=== PATIENT | female | born 1950 | race Caucasian/White ===

== ENCOUNTER 2024-02-25 14:19 | Inpatient (IN) | payer BC, MEDICARE, SELFPAY ==
[2024-02-24 14:18] VITALS: BP 153/82
[2024-02-24 14:43] LABS: Urine Albumin Negative (Neg - Trace); Urine Bilirubin Negative (Negative); Urine Character Clear (Clear); Urine Color Yellow; Urine Glucose Negative (Negative); Urine Ketone Negative (Negative); Urine Leukocyte 2+ (Negative); Urine Nitrite Negative (Negative); Urine Occult Blood Negative (Negative); Urine Urobilinogen Negative (Neg - 1+); Urine pH 6.5 (5.0-9.0)
[2024-02-24 14:52] LABS: % Basophils 0.7 % (0-2); % Immature Granulocytes 0.7 % (0-0.5); % Monocytes 4.2 % (1.7-9.3); % Neutrophils 66.4 % (42.2-75.2); Absolute Basophils 0.1 10^3/uL (0-0.2); Absolute Eosinophils 0.1 10^3/uL (0-0.7); Absolute Immature Granulocytes 0.1 10^3/uL (0-0.05); Absolute Lymphocytes 2.5 10^3/uL (1.2-3.4); Absolute Monocytes 0.4 10^3/uL (0.1-0.6); Absolute Neutrophils 6.1 10^3/uL (1.4-6.5); Hematocrit 43.2 % (37.0-47.0); Hemoglobin 14.1 g/dL (12.0-16.0); Mean Corp Hgb Conc. 32.6 g/dL (33.0-37.0); Mean Corpuscular Hgb 31.3 pg (27.0-31.0); Nucleated Red Blood Cells % 0 %; Platelet Count 294 10^3/uL (130-400); Red Cell Dist. Width 13.1 % (11.5-14.5); White Blood Cell Count 9.2 10^3/uL (4.8-10.8)
[2024-02-24 14:54] VITALS: BMI 31.4
[2024-02-24 14:59] LABS: ALT (SGPT) 18 U/L (0-35); AST (SGOT) 26 U/L (14-36); Albumin 4.6 g/dl (3.5-5.0); Alkaline Phosphatase 83 U/L (38-126); Blood Urea Nitrogen 19 mg/dl (7-17); Calcium 9.8 mg/dl (8.4-10.2); Carbon Dioxide 24 mmol/L (22-30); Chloride 106 mmol/L (98-107); Estimated Creatinine Clearance 75 ml/min; Glucose 142 mg/dl (70-99); Potassium 4.2 mmol/L (3.5-5.1); Sodium 139 mmol/L (135-145); Total Bilirubin 0.5 mg/dl (0.2-1.3); Total Protein 7.3 g/dl (6.3-8.2); eGFR > 60.00
[2024-02-24 15:05] VITALS: BP 138/74
[2024-02-24 15:22] LABS: Urine Bacteria Many (Negative); Urine Red Blood Cell 0-2 /HPF (0-2)
--- NOTE | 2024-02-24 15:53 | ED.GENMED ---
History of Present Illness
General
Chief Complaint: Change in Mental Status
Source: patient and family
Exam Limitations: none
Time Seen by Provider: 02/24/24 14:59
Nursing documentation reviewed up to this point in time: agreed with
History of Present Illness
History of Present Illness:
73-year-old female presents emergency department due to difficulty walking, confusion when she was driving to breakfast, difficulty pouring cereal.
Past History
Past History
ED Past Medical History: None
ED Past Surgical History: Appendectomy, Cholecystectomy and Gynecological (Hysterectomy)
Social History
Tobacco: Non-smoker
Alcohol: None
Drug: None
Review of Systems
Review of Systems
Allergies reviewed?: Yes
All Other Systems: Not applicable
Constitutional: Reports no symptoms
EENT: Reports no symptoms
Respiratory: Reports no symptoms
Cardiac: Reports no symptoms
ABD/GI: Reports no symptoms
: Reports no symptoms
Musculoskeletal: Reports no symptoms
Skin: Reports no symptoms
Neurological: Reports other (Confusion, difficulty walking)
Endocrine: Reports no symptoms
Hematologic/Lymphatic: Reports no symptoms
Psychiatric: Reports no symptoms
Phy Exam
Physical Exam
Physical Exam:
Physical Exam
General: no apparent distress, not acutely ill
Neck: supple. no meningeal signs. normal posterior pharynx
Heart: s1/s2 regular rate and rhythm, no murmur. equal radial
pulses.
HEENT: Pupils equal round reactive to light, EOMI
Lungs: no acute respiratory distress. clear bilaterally
Abdomen: normal bowel sounds. not tender. no CVAT
Neuro: alert and oriented. no focal neurological deficits cranial nerves II through XII intact
Skin: no rash
Psychiatric: well kept. interactive and cooperative
Extremities: no edema. no calf tenderness. negative homans. good distal pulses
NIH Stroke Score
Level of Consciousness: 0 - Alert
LOC questions: 0-Answers both correctly
LOC Commands: 0-Performs both correctly
Best Gaze: 0-Normal
Visual [place]: 0=Normal, no visual loss
Facial palsy: 0=Normal, symmetrical
Motor - Right Arm: 0=No drift 10 seconds
Motor - Left Arm: 0=No drift 10 seconds
Motor - Right Le-No drift 5 seconds
Motor - Left Le-No drift 5 seconds
Limb Ataxia: 0-Absent
Sensation: 0-Normal
Best Language: 0-No aphasia
Dysarthria: 0-Normal
Extinction and Inattention: 0-No abnormality
Total Score:: 0
Alteplase Contraindication
Reasons for NON-Treatment with Thrombolytics: Time
King Coma Scale
Eye Opening: Spontaneous
Verbal Response: Oriented
Motor Response: Obeys Commands
GCS Total Score: 15
Course
Orders/Labs/Results
Orders:
Orders
02/24/24 14:22
CT Head W/o Iv Contrast Urgent
Comment:
Reason For Exam: change in mental status
02/24/24 14:31
Complete Blood Count/With Diff Urgent
Comprehensive Metabolic Panel Urgent
Urinalysis Reflex To Culture Urgent
Date Specimen was Collected: 02/24/24
Time Specimen was Collected: 14:22
Urine Microscopic Reflex Cult Urgent
Urine Culture Urgent
GIOVANA Source: U
Specimen Description:
Date Specimen was Collected: 02/24/24
Time Specimen was Collected: 14:22
Abnormal Lab Results
02/24/24
14:31
MCH 31.3 H pg
(27.0-31.0)
MCHC 32.6 L g/dL
(33.0-37.0)
Abs Immat Gran (auto) 0.1 H 10^3/uL
(0-0.05)
Immature Gran % 0.7 H %
(0-0.5)
BUN 19 H mg/dl
(7-17)
Glucose 142 H mg/dl
(70-99)
Leukocyte Esterase Rfl 2+ A
(Negative)
Urine WBC (Reflex) 11-15 A /HPF
(0-5)
Urine Bacteria (Reflex) Many A
(Negative)
02/24/24 14:31
02/24/24 14:31
Vital Signs
Initial and Last Documented VS:
Initial Vital Signs
Temp Pulse Resp BP Pulse Ox
98.0 F 87 16 153/82 98
02/24/24 14:18 02/24/24 14:18 02/24/24 14:18 02/24/24 14:18 02/24/24 14:18
Last Documented Vital Signs
Temp Pulse Resp BP Pulse Ox
98.0 F 84 13 138/74 95
02/24/24 14:18 02/24/24 15:15 02/24/24 15:15 02/24/24 15:05 02/24/24 15:15
MDM/Problems Addressed
Differential Diagnosis Includes:
CVA, intracranial hemorrhage
MDM/Problems Addressed:
73-year-old female with CVA. No indication for tPA or IAT. Unclear onset of symptoms.
*Radiology
Radiology exam reviewed: radiology read reviewed (CT head shows acute/subacute nonhemorrhagic infarct in right basal ganglia)
*Pulse Oximetry
Patient hypoxic: no
*Research Subject Interpretation
Rate: normal
Interpretation: normal
Heart Rate: 78
Rhythm: sinus
*Critical Care Note
Total Time (30-74mins, 75-104mins- exclusive of procedures): Not Applicable
Data Reviewed
Prescriptions/Medications Considered But Not Given:
TNK not indicated
ED Attending Note
-
Portions of this chart may have been created with voice recognition software.� Occasional wrong word or��sound alike� substitutions may have occurred due to the inherent limitations of voice recognition software.
Discharge Plan
Departure
Patient Disposition: Admit
Date of Disposition: 02/24/24
Time of Disposition: 15:59
Presentation/result/management discussed w/ accepting MD/DO: Hospitalist
Patient with high blood pressure during this ER visit?: Yes
Condition: Good
Discharge Problem:
Acute CVA (cerebrovascular accident)
Prescriptions:
No Action
albuterol sulfate 1 PUFF HFA aerosol inhaler
2 puff inhalation R QID Qty: 1 0RF
benzonatate 100 MG capsule
100 mg PO TIDPRN PRN (Reason: cough) Qty: 20 0RF
Referrals:
Roselyn Barragan DO [Family Provider] -
Interventions
Interventions:
*Risk Screen - Suicide Last Done: 02/24/24 14:54
*General Assessment Last Done: 02/24/24 14:54
*Neglect/Abuse Screening Last Done: 02/24/24 14:54
ED- Fall Risk Assessment Last Done: 02/24/24 15:28
*ED COVID-19 Vaccine History Last Done: 02/24/24 14:18
ED- Neurological Assessment Last Done: 02/24/24 15:05
Discharge Date and Time
Print Language: L[place]
[2024-02-24 16:00] VITALS: BP 138/75
[2024-02-24] MEDS: LOW STRENGTH ASPIRIN 324 MG PO (16:11)
[2024-02-24] MEDS: PLAVIX 300 MG PO (16:11)
--- NOTE | 2024-02-24 18:15 | HPS.HSE ---
Family Physician
-
Family Physician: Roselyn Barragan DO
Chief Complaint
-
Son was concerned she was acting differently and had ataxia
History of Present Illness
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
pancakes), and had 'shuffling gait' at approximately 10 am. He called his sister (who is also a nurse), around 1 pm describing unusual behaviors. They also thought their mom may have had a right-sided facial droop. All symptoms have resolved at this
time, and the patient denies any of these symptoms and does not recall having unusual symptoms. She takes only a daily aspirin 81 mg. She has been traveling (2 months ago) to [place], and otherwise denies other ROS and feels well at this time.
ED txt: Neuro Cx from ED for acute stroke right basal ganglia.
aspirin 324 mg
Plavix 300 mg
Medical History
Past Medical History
Past Medical History: Reports None
Past Surgical History: Reports Appendectomy, Cholecystectomy and Gynocological (MICHAEL)
Social History
Tobacco: Non-smoker
Alcohol: None
Drug: None
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
Family History
Family History: Not pertinent
Allergies / Home Medications
Allergies reflects when Allergies were last updated in [facility].
Home Medications with original date entered in [facility]
Allergy/Medication List:
Allergies
Allergy/AdvReac Type Severity Reaction Status Date / Time
No Known Allergies Allergy Verified 02/24/24 14:21
Home Medications
aspirin 81 mg tablet,delayed release 81 mg PO DAILY 02/24/24
calcium carbonate 500 mg-vitamin D3 10 mcg (400 unit) tablet (Calcium 500 + D) 1 tab PO DAILY 02/24/24
ibuprofen 200 mg tablet (Advil) 400 mg PO Q6HPRN PRN mild pain 02/24/24
Review of Systems
-
A 12 point ROS was completed and negative except as noted: Yes
Physical Exam
Vital Signs
Vital Signs
Temp Pulse Resp BP Pulse Ox
98.0 F 85 19 138/75 95
02/24/24 14:18 02/24/24 17:45 02/24/24 17:45 02/24/24 16:00 02/24/24 17:45
Physical Exam
General: Well Developed, Well Nourished, No Apparent Distress, Comfortable and Conversant
HEENT: NormoCephalic, Anicteric and Moist mucous membranes
Respiratory: Clear
Cardiac: S1/S2 and Regular Rhythm
GI: Soft and Non Tender
Musculoskeletal: No Clubbing, No Cyanosis and No Edema
Skin: Warm and Dry
Neuro: AO x 3, No Motor Deficits, Nonfocal/grossly intact, Cranial Nerves Intact and No Sensory Deficits
Laboratory Results
-
02/24/24 14:31
02/24/24 14:31
Laboratory Results
Total Bilirubin 0.5 mg/dl (0.2-1.3) 02/24/24 14:31
AST 26 U/L (14-36) 02/24/24 14:31
ALT 18 U/L (0-35) 02/24/24 14:31
Alkaline Phosphatase 83 U/L (38-126) 02/24/24 14:31
Data Reviewed
-
CT Scan: Report Reviewed by me (CTA head and neck Evolving acute/subacute nonhemorrhagic infarct in the right basal ganglia.)
Impression/Plan
-
IMPRESSION:
# Right basal ganglia likely representing an acute/subacute nonhemorrhagic infarct,
-Neuro Consultation from ED
- CTA head and neck Evolving acute/subacute nonhemorrhagic infarct in the right basal ganglia.
-not tPA candidate nor IAT
-resolved focal neurological symptoms at this time
-admit to telemetry for monitoring for arrhythmia overnight
-NIH scale and neuro-checks, scheduled
-MRI brain, MRA head and neck
-echocardiogram
-PT eval
-aspirin and Plavix at this time s/p loading dose in ED, followed by aspirin 81 mg daily and Plavix 75 mg daily, awaiting formal Neuro Consult for duration of DAPT
-permissive hypertension- goal less than 220/120 until tomorrow 8 am
DVT proph-PCSs
Full Code
[2024-02-24 19:30] VITALS: BP 132/62
[2024-02-24 20:47] VITALS: BMI 31.1
[2024-02-24 20:48] VITALS: BP 132/72
--- NOTE | 2024-02-24 20:55 | PTCARENOTE ---
Pt was received from ED at 0. Pt ambulated to the room. NIH 1 on arrival. Minor left facial droop noted. Pt oriented to the room and the care plan. Family at the bedside.
[2024-02-24 23:20] VITALS: BP 124/59
[2024-02-25 03:15] VITALS: BP 135/69
[2024-02-25 06:00] VITALS: BMI 31.1
[2024-02-25 07:46] VITALS: BP 166/66
[2024-02-25 07:47] LABS: Hematocrit 41.2 % (37.0-47.0); Hemoglobin 13.4 g/dL (12.0-16.0); Mean Corp Hgb Conc. 32.5 g/dL (33.0-37.0); Mean Corpuscular Hgb 30.9 pg (27.0-31.0); Mean Corpuscular Volume 94.9 fL (81.0-99.0); Mean Platelet Volume 9.1 fL (7.4-10.4); Platelet Count 270 10^3/uL (130-400); Red Blood Cell Count 4.34 10^6/uL (4.20-5.40); Red Cell Dist. Width 13.2 % (11.5-14.5); White Blood Cell Count 9.5 10^3/uL (4.8-10.8)
[2024-02-25] MEDS: OSCAL 500 + D 500 MG PO (08:31)
[2024-02-25] MEDS: ASPIR LOW (ENTERIC COATED) 81 MG PO (08:31)
[2024-02-25] MEDS: PLAVIX 75 MG PO (08:32)
[2024-02-25 08:34] LABS: ALT (SGPT) 16 U/L (0-35); AST (SGOT) 22 U/L (14-36); Albumin 4.1 g/dl (3.5-5.0); Alkaline Phosphatase 80 U/L (38-126); Blood Urea Nitrogen 19 mg/dl (7-17); Calcium 9.4 mg/dl (8.4-10.2); Carbon Dioxide 25 mmol/L (22-30); Chloride 106 mmol/L (98-107); Estimated Creatinine Clearance 65 ml/min; Glucose 92 mg/dl (70-99); HDL Cholesterol 56 mg/dl; LDL Cholesterol, Calculated 171 mg/dl; Potassium 4.3 mmol/L (3.5-5.1); Sodium 140 mmol/L (135-145); Total Bilirubin 0.5 mg/dl (0.2-1.3); Total Cholesterol 248 mg/dl (50-199); Total Protein 6.6 g/dl (6.3-8.2); Triglyceride 108 mg/dl (10-149); Very Low Density Lipoprotein 21 mg/dl (0-30); eGFR > 60.00
[2024-02-25 10:11] VITALS: BP 100/57; PULSE 93; O2SAT 98
[2024-02-25 10:33] VITALS: BP 100/57; PULSE 82; O2SAT 97
[2024-02-25 11:34] VITALS: BP 162/93
--- NOTE | 2024-02-25 11:40 | CON.NEURO4 ---
Consultation - Neurology 4
-
CONSULTING PHYSICIAN: Kerwin Valdivia MD(Neurology)
REFERRING PHYSICIAN: Tej Ambriz
DICTATED BY: Kerwin Valdivia MD
DATE/TIME OF REQUEST:
DATE/TIME OF CONSULTATION: 02/25/2024 1115A
Reason for Consultation: AMS
History of Present Illness:
This is a 73 year old right handed female who has presented to the hospital with AMS. She has no previous medical issues, and had been in her [place] till yesterday AM. She was to meet her family at [place] and drove past initially and was able to
return. She recognized her family but was emotionally subdued. Her son noted her to be 'acting strangely (she emptied a whole bottle of syrup on her pancakes), and had 'shuffling gait' at approximately 10 am. He called his sister (who is also a
nurse), around 1 pm describing unusual behaviors. They also thought their mom may have had a left-sided facial droop. She was then taken to the ER
And symptoms have resolved at this time, and the patient denies any of these symptoms and does not recall having unusual symptoms. She takes only a daily aspirin 81 mg. She had traveled abroad to [place], and otherwise denies other ROS and feels well
at this time.
Following admission she has been doing well. No facial or limb weakness. NIHSS= 0
CT and MRI head revealed an acute right basal ganglia infarction.
Past Medical History: None
Surgical History: Appendectomy
Family History: None
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
Allergies: None
Home Medications: Ecasa 81
Review of Symptoms:
Patient denies any fever, headache, chest pain, shortness of breath, GI or symptoms.
�Per the HPI.�All systems are reviewed negative except above.
�- Remove any of these problems that patient may have complained about in the HPI.
�- If patient is unresponsive, intubated or demented, say 'Per the HPI. I am unable to obtain a complete review of systems�because of patient's inability to provide history.'
Vital Signs:
Physical Exam:
The patient is afebrile, heart sounds S1 and S2 are (regular / irregular), and chest is clear to auscultation bilaterally.
- If not clear, describe.
NIH Stroke Scale (if applicable):
I performed the NIH stroke scale on the patient on (date & time). The patient scored ( ) points on the NIH stroke scale assessment, which were assigned as follows:
Neurologic Examination:
The patient is awake, alert and oriented x 3. (He/She) is able to follow commands and answer questions appropriately. There is no aphasia or dysarthria. On cranial nerve assessment, pupils are 3 mm bilateral, round and reactive to light and
accommodation. Visual valerio are full. Extraocular movements are intact. Facial sensations are intact and bilaterally symmetrical, there is no facial asymmetry. Hearing is intact bilaterally to normal conversation volume. Tongue palate and uvula
are midline. Sternocleidomastoid strengths are full bilaterally. Motor strengths are 5/5 bilateral upper and lower extremities on medical research [place] scale. There is no drift or involuntary movement noted. Deep tendon reflexes are 2+ bilateral
upper and lower extremities and Babinski is absent bilaterally. Sensations of pain, touch, temperature and vibration are intact and bilaterally symmetrical. There was no extinction noted on double simultaneous stimulation. Coordination is intact by
finger to nose bilaterally.
Lab Results:
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
Impression:
Ms. JOSE BARRETT is a 73 year old F who has presented to the hospital with new onset AMS had an acute Right basal ganglia infarction.
Recommendations:
1. Ecasa 81 mg
2. Plavix 75
3. Lipitor 80
4. Echocardiogram
5. PT/OT
6. Do not drive for 1-2 weeks
Discussed patient care with:
Total Time Spent with Patient (in minutes): 30 minutes
--- NOTE | 2024-02-25 11:48 | CM ---
Addendum entered by Ann Marie Barba 02/25/24 15:27:
Patient seen with family, agreeable to [facility] referral. Patient and family report patient will be home bound and not returning to work for the next month or month and a half. CM sent TT to [facility] liaison.
Original Note:
Patient seen bedside with multiple family members, initial assessment completed. 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 Patient denies DME, VN, or SNF. Patient confirms PCP Roselyn Barragan,
pharmacy used [facility]. CM discussed PT/OT recommendations of outpatient therapy, patient declines. CM reviewed [facility] form, signed, placed in chart. Patient inquiring about discharge. CM will continue to follow for all discharge planning needs.
Plan; home no needs, declining script for outpatient therapy.
--- NOTE | 2024-02-25 11:55 | CON.NEURO ---
Consultation
Order
Date of Consultation: 02/25/24
Requesting Provider:
Reason for Consult:
Subjective/Objective
Subjective Data
Date of Service: February 25, 2024
Objective Data
Vital Signs
Temp Pulse Resp BP Pulse Ox
36.6 C 85 21 162/93 95
02/25/24 11:34 02/25/24 11:34 02/25/24 11:34 02/25/24 11:34 02/25/24 11:34
Lab Results
02/25/24 07:10
02/25/24 07:10
Sodium 140 mmol/L (135-145) 02/25/24 07:10
Potassium 4.3 mmol/L (3.5-5.1) 02/25/24 07:10
BUN 19 mg/dl (7-17) H 02/25/24 07:10
Glucose 92 mg/dl (70-99) 02/25/24 07:10
Calcium 9.4 mg/dl (8.4-10.2) 02/25/24 07:10
LDL Cholesterol, Calc 171 mg/dl 02/25/24 07:10
Patient Allergies
No Known Allergies Allergy (Verified 02/24/24 14:21)
Medications
-
Active Medications
Generic Name Dose Route Start Last Admin
Trade Name Freq PRN Reason Stop Dose Admin
Acetaminophen 650 mg 02/24/24 20:23
Acetaminophen 650 Mg Rectal Suppository RECTAL 03/23/24 20:22
Q4HPRN PRN
BEACH, mild pain, or temp >100.4F
Acetaminophen 650 mg 02/24/24 20:23
Acetaminophen 325 Mg Tablet PO 03/23/24 20:22
Q4HPRN PRN
BEACH, mild pain, or temp >100.4F
Aspirin 81 mg 02/25/24 08:00 02/25/24 08:31
Aspirin 81 Mg (Enteric Coated) Tablet PO 03/24/24 07:59 81 mg
DAILY LARISA Administration
Atorvastatin Calcium 80 mg 02/25/24 18:00
Atorvastatin (Lipitor) 80 Mg Tablet PO 03/24/24 17:59
QPM LARISA
Calcium/Vitamin D 500 mg 02/25/24 08:00 02/25/24 08:31
Calcium Carbonate 500 Mg/Vitamin D 5 Mcg (200 Units) Tablet PO 03/24/24 07:59 500 mg
DAILY LARISA Administration
Clopidogrel Bisulfate 75 mg 02/25/24 08:00 02/25/24 08:32
Clopidogrel 75 Mg Tablet PO 03/24/24 07:59 75 mg
DAILY LARISA Administration
Sodium Chloride 0 flush 02/24/24 21:00
Sodium Chloride 0.9% (Flush) Syringe IV 03/23/24 20:59
PER PROTOCOL LARISA
Home Medications
�Medication �Instructions �Recorded
aspirin 81 mg tablet,delayed 81 mg PO DAILY 02/24/24
release
calcium carbonate 500 mg-vitamin 1 tab PO DAILY 02/24/24
D3 10 mcg (400 unit) tablet
(Calcium 500 + D)
ibuprofen 200 mg tablet (Advil) 400 mg PO Q6HPRN PRN mild pain 02/24/24
--- NOTE | 2024-02-25 13:59 | W.PN.HOSP.TC ---
Today's Communication/Plan
-
Will need close follow up post dc
Assessment / Plan
Assessment / Plan
# Right basal ganglia likely representing an acute/subacute nonhemorrhagic infarct,
-Neuro Consultation from ED. Was noted to be disoriented, as per family is now 90% back to nl
- CTA head and neck Evolving acute/subacute nonhemorrhagic infarct in the right basal ganglia.
-not tPA candidate nor IAT
-resolved focal neurological symptoms at this time
-admit to telemetry for monitoring for arrhythmia overnight
-NIH scale and neuro-checks, scheduled
-MRI brain, MRA head and neck: 1. 2.6 cm ACUTE ISCHEMIC INFARCT in the RIGHT CAUDATE NUCLEUS and BASAL GANGLIA.
2. Mild white matter leukoaraiosis in the frontal and parietal lobes.
3. Moderate bilateral frontal lobe volume loss.
4. Mild paranasal sinus mucosal disease.
MRA: 1. No MRA evidence for large vessel intracranial arterial stenosis or occlusion.
2. Mild atherosclerotic plaque in both internal carotid arteries.
MRA neck: 1. Mild atherosclerotic plaque in both proximal internal carotid arteries.
2. No MRA evidence for internal carotid artery stenosis or occlusion.
3. 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
4. Severe tortuosity of the proximal left vertebral artery.
Echo: Technically fair study
Normal left ventricular size, wall thickness and systolic function. No regional
wall motion abnormalities are seen. LV ejection fraction is 55-60%.
No significant valve disease
No cardiac source of embolus identified, consider GUSTAVO if clinically indicated.
No prior echo for comparison
-echocardiogram:Technically fair study
Normal left ventricular size, wall thickness and systolic function. No regional
wall motion abnormalities are seen. LV ejection fraction is 55-60%.
No significant valve disease
No cardiac source of embolus identified, consider GUSTAVO if clinically indicated.
No prior echo for comparison
-PT eval
-aspirin and Plavix at this time s/p loading dose in ED, followed by aspirin 81 mg daily and Plavix 75 mg daily, discussed with Neuro, will continue for 4 weeks
-BP now 136/83, BP borderline, will start Toprol XL 25 mg daily
DVT proph-PCSs
Full Code
will dc now
see dictated note
More than 30 minutes spent in discharge including
Final examination of the patient
Summarizing hospital stay
Instructions for continuing care to all relevant caregivers
Preparation of discharge records, prescriptions, and referral forms
Total time spent (in minutes): 45
Anticipated Discharge: Today
Subjective/Interval History
-
Date of Service: February 25, 2024
Feels well, anxious to go home
Objective Data
-
Labs:
Laboratory Results
02/25/24
07:10
WBC 9.5
Hgb 13.4
Hct 41.2
Plt Count 270
Sodium 140
Potassium 4.3
Chloride 106
Carbon Dioxide 25
BUN 19 H
Creatinine 0.8
Glucose 92
Calcium 9.4
Total Bilirubin 0.5
AST 22
ALT 16
Alkaline Phosphatase 80
Vital Signs:
Vital Signs
Temp Pulse Resp BP Pulse Ox
98 F 85 21 162/93 95
02/25/24 11:34 02/25/24 11:34 02/25/24 11:34 02/25/24 11:34 02/25/24 11:34
Review of Systems
-
History Source: Patient, Family (son Jake, gnd dgt Arlene, dgt Judy) and Physician (reviewed with neurology)
Constitutional: Reports No Symptoms; Denies Fever
EENT: Reports No Symptoms Reported
Respiratory: Reports No Symptoms; Denies Cough
Cardiac: Reports No Symptoms
Abdomen/GI: Reports No Symptoms
Genitourinary: Reports No Symptoms
Musculoskeletal: Reports No Symptoms
Neuro: Reports Other (mentation ~98% back to baseline)
Physical Exam
-
General: Well Developed, Well Nourished and No Apparent Distress
HEENT: Normocephalic, Atraumatic and Moist Mucous Membranes
Respiratory: Clear to Auscultation; Negative Wheezes, Rales or Rhonchi
Cardiac: Regular Rhythm and S1/S2
GI: Soft, Nontender and Nondistended
Musculoskeletal: No Clubbing, No Cyanosis and No Edema
Neuro: Awake, Alert and Oriented
--- NOTE | 2024-02-25 16:32 | VNURNOTE ---
Home Health Liaison spoke with patient at 1630 to discuss [facility] therapy, visits, schedule and homebound status. Patient is agreeable and understands that visits at home will be 2-3 x per week to assess and teach balance and strengthening exercises.
Patient is aware that [facility] will contact them for start of care in 1-2 days after discharge from .
[facility] referral completed in [facility].
--- NOTE | 2024-02-26 07:09 | W.DS.TRANS ---
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
-
Discharge Instructions:
Discharge Diagnosis/Procedures Cerebrovascular Accident
Diet Regular
Activity No strenuous activity
Additional Activity No work until cleared by neurologists
Driving Restrictions Not until seen by your Dr
Bathing Restrictions None
Blood Work CBC, BMP in 2 weeks, Lipid Profile in 5-6 weeks
Other Services VN,PT
Instructions:
Stand-Alone Forms:
Changes to Home Medications: Yes
Discharge Medications:
DC Medications w/original date entered in [employer]
aspirin 81 mg tablet,delayed release 81 mg PO DAILY 02/24/24
calcium carbonate 500 mg-vitamin D3 10 mcg (400 unit) tablet (Calcium 500 + D) 1 tab PO DAILY 02/24/24
atorvastatin 80 mg tablet 80 mg PO QPM #90 tabs 02/25/24
clopidogrel 75 mg tablet 75 mg PO DAILY #28 tabs 02/25/24
metoprolol succinate 25 mg tablet,extended release 24 hr (Toprol XL) 25 mg PO DAILY #30 tabs 02/25/24
Home Medication Changes
Lipitor, Plavix and Toprol added to medications
Pending Results: No
== END 2024-02-25 15:24 | disposition home health service (06) | DRG 66 ==
LOC: 4 WEST ACU 14:19
PROVIDERS: Emergency Medicine; ADMITTING PHYSICIAN Internal Medicine; ATTENDING PHYSICIAN Internal Medicine; EMERGENCY PHYSICIAN Emergency Medicine; FAMILY PHYSICIAN Family Medicine; OTHER PHYSICIAN Psychiatry & Neurology Neurology
DX: I63.89 Other cerebral infarction (principal); R29.810 Facial weakness; R27.0 Ataxia, unspecified; R03.0 Elevated blood-pressure reading, without diagnosis of hypertension; E78.5 Hyperlipidemia, unspecified; Z79.82 Long term (current) use of aspirin
CPT/HCPCS: 70450; 70496; 70498; 70544; 70548; 70551; 80053; 80061; 81003; 81015; 85025; 85027; 87086; 93005; 93306; 97162; 97166; 99285; Q9967

== ENCOUNTER 2024-04-02 07:59 | Outpatient (RCR) | payer BC, MEDICARE, SELFPAY | END 2024-04-02 23:59 | disposition home or self-care (01) | LOC: ROT 07:59 | PROVIDERS: ATTENDING PHYSICIAN Emergency Medicine | DX: I69.314 Frontal lobe and executive function deficit following cerebral infarction (principal); I69.318 Other symptoms and signs involving cognitive functions following cerebral infarction | CPT/HCPCS: 96125; 97129; 97130; 97530 ==

== ENCOUNTER 2024-05-02 08:46 | Outpatient (RCR) | payer BC, MEDICARE, SELFPAY | END 2024-05-02 23:59 | disposition home or self-care (01) | LOC: ROT 08:46 | PROVIDERS: ATTENDING PHYSICIAN Emergency Medicine | DX: I69.398 Other sequelae of cerebral infarction (principal); Z73.6 Limitation of activities due to disability; I69.314 Frontal lobe and executive function deficit following cerebral infarction; I69.318 Other symptoms and signs involving cognitive functions following cerebral infarction | CPT/HCPCS: 97129; 97130; 97530; 97537 ==

== ENCOUNTER 2024-05-30 06:33 | Outpatient (RCR) | payer MEDICARE, SELFPAY | END 2024-05-30 23:59 | disposition home or self-care (01) | LOC: ROT 06:33 | PROVIDERS: ATTENDING PHYSICIAN Emergency Medicine | DX: I69.314 Frontal lobe and executive function deficit following cerebral infarction (principal); I69.318 Other symptoms and signs involving cognitive functions following cerebral infarction; Z73.6 Limitation of activities due to disability | CPT/HCPCS: 96125; 97129; 97130; 97167; 97530; 97535; 97537 ==

== ENCOUNTER 2024-07-02 06:36 | Outpatient (RCR) | payer SELFPAY | END 2024-07-02 23:59 | disposition home or self-care (01) | LOC: ROT 06:36 | PROVIDERS: ATTENDING PHYSICIAN Emergency Medicine | DX: I69.314 Frontal lobe and executive function deficit following cerebral infarction (principal); I69.318 Other symptoms and signs involving cognitive functions following cerebral infarction; Z73.6 Limitation of activities due to disability | CPT/HCPCS: 97129; 97130; 97530; 97537 ==

== ENCOUNTER 2024-07-30 10:23 | Outpatient (RCR) | payer MEDICARE, SELFPAY | END 2024-07-30 23:59 | disposition home or self-care (01) | LOC: ROT 10:23 | PROVIDERS: ATTENDING PHYSICIAN Emergency Medicine | DX: I69.314 Frontal lobe and executive function deficit following cerebral infarction (principal); I69.318 Other symptoms and signs involving cognitive functions following cerebral infarction; Z73.6 Limitation of activities due to disability | CPT/HCPCS: 97129; 97130; 97530; 97537 ==

== ENCOUNTER 2024-08-06 12:51 | Outpatient (RCR) | payer MEDICARE, SELFPAY | END 2024-08-06 23:59 | disposition home or self-care (01) | LOC: ROT 12:51 | PROVIDERS: ATTENDING PHYSICIAN Emergency Medicine | DX: I69.314 Frontal lobe and executive function deficit following cerebral infarction (principal); I69.318 Other symptoms and signs involving cognitive functions following cerebral infarction; Z73.6 Limitation of activities due to disability | CPT/HCPCS: 97129; 97130; 97530 ==

== ENCOUNTER 2024-12-16 08:17 | Emergency (ER) | payer OTHER, SELFPAY ==
[2024-12-16 08:21] VITALS: BP 130/79
[2024-12-16] MEDS: TORADOL 15 MG IV (09:34)
[2024-12-16 09:46] LABS: Hematocrit 40.7 % (37.0-47.0); Hemoglobin 13.6 g/dL (12.0-16.0); Mean Corp Hgb Conc. 33.4 g/dL (33.0-37.0); Mean Corpuscular Hgb 31.7 pg (27.0-31.0); Mean Corpuscular Volume 94.9 fL (81.0-99.0); Mean Platelet Volume 9.2 fL (7.4-10.4); Platelet Count 262 10^3/uL (130-400); Red Blood Cell Count 4.29 10^6/uL (4.20-5.40); White Blood Cell Count 11.5 10^3/uL (4.8-10.8)
[2024-12-16 10:06] LABS: ALT (SGPT) 39 U/L (0-35); AST (SGOT) 39 U/L (14-36); Alkaline Phosphatase 104 U/L (38-126); Blood Urea Nitrogen 19 mg/dl (7-17); Calcium 9.8 mg/dl (8.4-10.2); Carbon Dioxide 23 mmol/L (22-30); Chloride 107 mmol/L (98-107); Glucose 143 mg/dl (70-99); Potassium 4.6 mmol/L (3.5-5.1); Sodium 141 mmol/L (135-145); Total Bilirubin 0.8 mg/dl (0.2-1.3); Total Protein 7.4 g/dl (6.3-8.2); eGFR > 60.00
[2024-12-16 10:39] LABS: Urine Albumin 3+ (Neg - Trace); Urine Bilirubin Negative (Negative); Urine Character Cloudy (Clear); Urine Color Brown; Urine Glucose Negative (Negative); Urine Ketone 1+ (Negative); Urine Leukocyte 2+ (Negative); Urine Nitrite Positive (Negative); Urine Occult Blood 4+ (Negative); Urine Urobilinogen Negative (Neg - 1+)
[2024-12-16 11:13] LABS: Urine Bacteria Few (Negative); Urine Red Blood Cell 90-100 /HPF (0-2); Urine Squamous Cell 0-2 /LPF (Few); Urine White Cell 0-2 /HPF (0-5)
--- NOTE | 2024-12-16 11:15 | ED.GENMED ---
History of Present Illness
General
Chief Complaint: Flank Pain
Time Seen by Provider: 12/16/24 08:56
History of Present Illness
History of Present Illness:
74-year-old female presents the emergency department for evaluation of left flank pain. She notes that she has been having intermittent hematuria for the past week or more. No fevers or chills. No prior history of kidney stone, states pain is
similar. Has not taken any medications this morning.
Past History
Past History
ED Past Medical History: None
ED Past Surgical History: Appendectomy, Cholecystectomy and Gynecological (Hysterectomy)
Social History
Tobacco: Non-smoker
Alcohol: None
Drug: None
Review of Systems
Review of Systems
Allergies reviewed?: Yes
All Other Systems: ROS reviewed and negative except as documented in HPI and ROS
Phy Exam
Physical Exam
Physical Exam:
GEN: Well appearing, NAD, WDWN
HEENT: Oral mucosa moist, no scleral icterus
Cardiac: Regular rate
Lung: No respiratory distress, no tachypnea
Abdomen: Soft, grossly nontender
MSK: No gross deformity or injuries
Skin: Good color, no pallor or jaundice, no rashes
Neuro: AO x3, moves all extremities freely
Psych: Calm, cooperative
Course
Orders/Labs/Results
Orders:
Orders
12/16/24 09:12
CT Abd/pel Without Iv Or Oral Urgent
Comment:
Reason For Exam: L flank pain/hematuria
Ketorolac [Toradol] 15 mg IV NOW STA
12/16/24 09:36
Complete Blood Count/No Diff Urgent
Comprehensive Metabolic Panel Urgent
12/16/24 10:30
Urinalysis Reflex To Culture Urgent
Date Specimen was Collected: 12/16/24
Time Specimen was Collected: 10:30
Urine Microscopic Reflex Cult Urgent
Urine Culture Urgent
GIOVANA Source: U
Specimen Description:
Date Specimen was Collected: 12/16/24
Time Specimen was Collected: 10:30
Abnormal Lab Results
12/16/24 12/16/24
09:36 10:30
WBC 11.5 H 10^3/uL
(4.8-10.8)
MCH 31.7 H pg
(27.0-31.0)
BUN 19 H mg/dl
(7-17)
Glucose 143 H mg/dl
(70-99)
AST 39 H U/L
(14-36)
ALT 39 H U/L
(0-35)
Urine Ketones 1+ A
(Negative)
Ur Occult Blood Reflex 4+ A
(Negative)
Urine Nitrite (Reflex) Positive A
(Negative)
Leukocyte Esterase Rfl 2+ A
(Negative)
Urine RBC 90-100 A /HPF
(0-2)
Urine Bacteria (Reflex) Few A
(Negative)
Urine Albumin (Reflex) 3+ A
(Neg - Trace)
12/16/24 09:36
12/16/24 09:36
Vital Signs
Initial and Last Documented VS:
Initial Vital Signs
Temp Pulse Resp BP Pulse Ox
99.4 F 100 16 130/79 95
12/16/24 08:21 12/16/24 08:21 12/16/24 08:21 12/16/24 08:21 12/16/24 08:21
Last Documented Vital Signs
Temp Pulse Resp BP Pulse Ox
99.4 F 100 16 127/69 95
12/16/24 08:21 12/16/24 08:21 12/16/24 08:21 12/16/24 11:17 12/16/24 08:21
MDM/Problems Addressed
MDM/Problems Addressed:
Imaging reveals two 3 mm proximal ureteral stones with mild upstream hydro-. Urinalysis is not consistent with infection, I suspect that the nitrite positive urinalysis is due to color from shakira blood. Patient's pain was quite well-controlled
after 1 dose of Toradol. Given that she is on Plavix I do not feel it is beneficial to prescribe further NSAIDs thus we will treat with Flomax, she declined opiate pain medications. No indication for antibiotics.
*Critical Care Note
Total Time (30-74mins, 75-104mins- exclusive of procedures): Not Applicable
ED Attending Note
-
Portions of this chart may have been created with voice recognition software.� Occasional wrong word or��sound alike� substitutions may have occurred due to the inherent limitations of voice recognition software.
Discharge Plan
Departure
Patient Disposition: Home (Routine Discharge)
Date of Disposition: 12/16/24
Time of Disposition: 11:17
Patient with high blood pressure during this ER visit?: No
Discharge Problem:
Ureterolithiasis
Instructions: Kidney Stones (DC)
Prescriptions:
New
tamsulosin [Flomax] 0.4 mg capsule
0.4 mg PO HS Qty: 14 0RF
No Action
aspirin 81 mg Tablet,Delayed Release (Dr/Ec)
81 mg PO DAILY
calcium carbonate-vitamin D3 [Calcium 500 + D] 500 mg-10 mcg (400 unit) Tablet
1 tab PO DAILY
atorvastatin 80 mg Tablet
80 mg PO QPM Qty: 90 2RF
clopidogrel 75 mg Tablet
75 mg PO DAILY Qty: 28 0RF
metoprolol succinate [Toprol XL] 25 mg tablet extended release 24 hr
25 mg PO DAILY Qty: 30 3RF
Referrals:
Navneet Alvarez MD [Active] -
Sandhya Montgomery DO [Family Provider] -
Interventions
Interventions:
*Risk Screen - Suicide Last Done: 12/16/24 08:21
*General Assessment Last Done: 12/16/24 08:21
*Neglect/Abuse Screening Last Done: 12/16/24 08:21
Discharge Date and Time
Print Language: GUINEAN
[2024-12-16 11:17] VITALS: BP 127/69
== END 2024-12-16 13:00 | disposition home or self-care (01) ==
LOC: EMR 08:17
PROVIDERS: Physician Assistant; EMERGENCY PHYSICIAN Student in an Organized Health Care Education/Training Program; FAMILY PHYSICIAN Emergency Medicine
DX: N13.2 Hydronephrosis with renal and ureteral calculous obstruction (principal); Z79.02 Long term (current) use of antithrombotics/antiplatelets; Z79.82 Long term (current) use of aspirin; Z90.49 Acquired absence of other specified parts of digestive tract
CPT/HCPCS: 99284; 96374; 74176; 80053; 81003; 81015; 85027; 87086